=== PATIENT | female | born 1985 | race Caucasian/White ===

== ENCOUNTER → 2019-08-26 | Outpatient (CLI) | payer OTHER ==
--- NOTE | 2019-08-26 13:17 | REP ---
MRI cervical spine: 08/26/2019. Indication: Neck pain. Comparison: None. Technique: Multiplanar short and long TR sequences of the cervical spine were obtained without IV Gadolinium. Findings: There is straightening of the cervical lordosis. No abnormal marrow signal is detected. The visualized cord is normal. Incidental note is made of a 1 cm Thornwaldt cyst. C2/C3 and C3/C4: There is no disc herniation or significant spinal canal / neural foraminal narrowing. C4/C5: Mild diffuse disc bulge is present with a tiny superimposed left paracentral disc protrusion. There is no significant spinal canal or neural foraminal narrowing. C5/C6: Diffuse disc bulge is present with mild spinal canal narrowing. Mild to moderate bilateral neural foraminal narrowing is present. C6/C7 and C7/T1: Unremarkable. Impression: Degenerative sequelae most pronounced in C5/C6 without significant spinal canal or neural foraminal narrowing. Electronically Signed by Benjamin Casey DO 08/26/2019 01:09 P
--- NOTE | 2019-08-26 13:24 | REP ---
MRI lumbar spine: 08/26/2019. Indication: Lumbar radiculopathy. Low back pain. Comparison: None. Technique: Multiplanar short and long TR sequences of the lumbar spine were obtained without IV Gadolinium. Findings: Vertebral body alignment is anatomic. No worrisome marrow signal is present. The visualized cord is normal. No significant paraspinal soft tissue abnormalities are detected. Mild disc bulging is noted anteriorly at L1/L2 and L2/L3. No focal disc herniations or areas of significant spinal canal / neural foraminal narrowing are present throughout the lumbar spine. Impression: No areas of significant spinal canal / neural foraminal narrowing. No focal disc herniations. Electronically Signed by Benjamin Casey DO 08/26/2019 01:15 P
== END ==
LOC: M PLARAD 10:29
PROVIDERS: ATTEND Physician Assistant
DX: M50.221 Other cervical disc displacement at C4-C5 level (principal); M54.5 Low back pain; M50.222 Other cervical disc displacement at C5-C6 level

== ENCOUNTER 2020-09-03 13:39 | Emergency (ER) | payer OTHER ==
[~2020-09-03] VITALS: Ht 172.7 cm; Wt 119.0 kg
[2020-09-03] MEDS ORDERED: CHOL4POW3 (13:54)
[2020-09-03] MEDS ORDERED: FIRV25SO (13:54)
[2020-09-03] MEDS ORDERED: DULO1CAP4 (13:54)
[2020-09-03] MEDS ORDERED: NS 1,000 ML IV ONE ×2 (14:30→16:15)
[2020-09-03 14:45] LABS: BASO % 0.3 % (0.0-1.0); EOS % 0.4 % (0.0-3.0); HEMATOCRIT 42.6 % (36.0-47.0); HEMOGLOBIN 13.7 g/dl (12.0-15.5); LYMPH # 2.7 10^3/uL (1.5-5.0); MEAN CORPUSCULAR HEMOGLOBIN 29.5 pg (27.0-33.0); MEAN CORPUSCULAR HGB CONC 32.2 g/dl (32.0-36.5); MEAN CORPUSCULAR VOLUME 91.6 fl (80.0-96.0); MONO # 0.4 10^3/uL (0.0-0.8); MONO % 4.8 % (0.0-5.0); NEUTROPHILS % 65.2 % (36.0-66.0); PLATELET COUNT, AUTOMATED 240 10^3/uL (150-450); RED BLOOD COUNT 4.65 10^6/uL (4.00-5.40); WHITE BLOOD COUNT 9.3 10^3/uL (4.0-10.0)
[2020-09-03 14:55] LABS: INR 0.97; PROTHROMBIN TIME 13.1 SECONDS (12.5-14.3)
[2020-09-03] MEDS ORDERED: ISOVUE-370 76% 100ML VIAL As Ordered ONE (14:55)
[2020-09-03 14:56] LABS: PARTIAL THROMBOPLASTIN TIME 27.6 SECONDS (24.2-38.5)
--- NOTE | 2020-09-03 15:38 | REP ---
INDICATION: generalized abd pain. COMPARISON: None. TECHNIQUE: Post of 100 mL Isovue 370 with scanning through the abdomen and pelvis in both coronal and sagittal reconstructions provided. FINDINGS: CT abdomen: Lung bases show minimal dependent atelectasis without nodule infiltrate or effusion. Heart is not enlarged. No pericardial thickening or effusion. No hiatal hernia. Fatty infiltration of the liver is noted with mild hepatomegaly and a vertical diameter of 19 cm of the right lobe of liver in midclavicular line. No focal hepatic mass or biliary dilatation. Gallbladder surgically absent. Spleen is not enlarged and shows no focal lesion no perisplenic ascites adrenal glands are normal pancreas shows no mass ductal dilatation adjacent inflammatory changes or adenopathy. Stomach with small amount of retained fluid no mass or distention small bowel loops in the abdomen proper unremarkable abdominal portion of the colon was intact. The lung windows show no evidence of perforation or free air in the abdomen or pelvis. No abdominal ascites. Kidneys show symmetric enhancement without mass, stone, hydronephrosis or perinephric edema the aorta is unremarkable no periaortic, mesenteric or other retroperitoneal lymph adenopathy. Is a small umbilical hernia with only omental fat and no bowel herniation. Of a a hernia gaps about 7 mm. Bone windows show lumbar and lower thoracic vertebral levels with no compression deformity or destructive lesion only minimal degenerative spurring and a few of the lower thoracic vertebral levels. CT pelvis sacrum, SI joints pelvis hips pubic bone were all unremarkable no ureteral dilatation or stone bladder is without mass or wall thickening. Uterus is midline anteverted not enlarged. Symmetric of size of the ovaries no adnexal mass or pelvic free fluid the distal left colon sigmoid and rectum are unremarkable cecum was intact and no adjacent inflammatory changes seen. No ventral or inguinal hernia. IMPRESSION: 1. Colon and small bowel loops unremarkable without inflammatory changes, adenopathy ascites or pelvic free air. No colitis or diverticulitis 2. No inflammatory changes about the cecum. 3. Fatty infiltration of the liver with some apical megaly and vertical diameter the right hepatic lobe of the 19 cm midclavicular line. 4. Prior cholecystectomy. No biliary dilatation. Pancreas, spleen, kidneys and stomach are all unremarkable. <Electronically signed by Srinivasan Partida > 09/03/20 [id number]
[2020-09-03 15:47] LABS: ALBUMIN 4.4 GM/DL (3.2-5.2); BILIRUBIN,DIRECT 0.2 MG/DL (0.0-0.2); BILIRUBIN,TOTAL 0.8 MG/DL (0.2-1.0); TOTAL PROTEIN 7.8 GM/DL (6.4-8.2)
[2020-09-03] MEDS ORDERED: IBUPROFEN 600MG TAB PO ONE (16:15)
[2020-09-03 19:43] VITALS: BP 133/84
== END 2020-09-03 19:45 | disposition home or self-care (01) ==
LOC: M ED 13:39
DX: A04.71 Enterocolitis due to Clostridium difficile, recurrent (principal); E86.0 Dehydration; M79.7 Fibromyalgia; K58.9 Irritable bowel syndrome, unspecified; F12.10 Cannabis abuse, uncomplicated; K76.0 Fatty (change of) liver, not elsewhere classified; Z88.8 Allergy status to other drugs, medicaments and biological substances
CPT/HCPCS: 74177; 80047; 80076; 83605; 83690; 84702; 85025; 85610; 85730; 86850; 86900; 86901; 87040; 93041; 96360; 99285; Q9967

== ENCOUNTER → 2020-09-05 | Outpatient (REF) | payer OTHER ==
[~2020-09-05] MED LIST: CHOL4POW3; DULO1CAP4; FIRV25SO
== END ==
LOC: M LAB REF 18:37
PROVIDERS: ATTEND Family Medicine
DX: R19.7 Diarrhea, unspecified (principal)

== ENCOUNTER 2020-09-17 16:07 | Outpatient (CLI) | payer OTHER ==
[~2020-09-17] VITALS: Ht 172.7 cm; Wt 113.6 kg
[~2020-09-17 16:07] MED LIST changes: +BEZLOTOXUMAB in NS 100 ML OVER 1 HR IV ONE
[2020-09-17] MEDS ORDERED: DIFI200T PO (16:31)
[2020-09-17 16:39] VITALS: BP 122/71
[2020-09-17 17:45] VITALS: BP 98/56
[2020-09-17 18:05] VITALS: BP 121/74
== END 2020-09-17 18:05 | disposition home or self-care (01) ==
LOC: M INFU 16:07
PROVIDERS: ATTEND Internal Medicine Gastroenterology
DX: A04.71 Enterocolitis due to Clostridium difficile, recurrent (principal); Z88.8 Allergy status to other drugs, medicaments and biological substances
CPT/HCPCS: 96365; J0565

== ENCOUNTER → 2020-12-14 | Outpatient (CLI) | payer OTHER ==
[~2020-12-14] MED LIST changes: -BEZLOTOXUMAB in NS 100 ML OVER 1 HR IV ONE; +DIFI200T PO; +E-Z-PAQUE 96% w/w SUSP 176GM BTL As Ordered ONE
--- NOTE | 2020-12-14 17:33 | REP ---
INDICATION: GI BLEED EVALUATION. COMPARISON: None. TECHNIQUE: The procedure was performed under the direct supervision of Dr. Mariano. The images were reviewed with Dr. Mariano. Liquid barium was administered and the barium column was followed through the small bowel to the level of the terminal ileum. 1.3 minutes of fluoro time was utilized for this procedure. 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 The intestinal gas pattern is nonspecific. Small bowel transit time is approximately 30 minutes. During fluoroscopy gentle palpation shows all loops are freely movable and pliable. There are no fixed or angulated loops. The small bowel mucosal pattern is normal in course and caliber. There is no transition to suggest a partial small bowel obstruction. Spot filming of the terminal ileum shows it to be unremarkable. IMPRESSION: Small bowel follow-through examination within normal limits. <Electronically signed by Salas Burleson > 12/14/20 [id number] <Electronically signed by Aidan Mariano > 12/14/20 [id number]
== END ==
LOC: M RAD 07:55
PROVIDERS: ATTEND Internal Medicine Gastroenterology
DX: K92.2 Gastrointestinal hemorrhage, unspecified (principal)

== ENCOUNTER → 2021-03-27 | Outpatient (CLI) | payer OTHER ==
[~2021-03-27] MED LIST changes: -E-Z-PAQUE 96% w/w SUSP 176GM BTL As Ordered ONE
--- NOTE | 2021-03-27 09:09 | REP ---
INDICATION: GB DISEASE. Gallbladder surgically absent. COMPARISON: Comparison CT study September 03, 2020.. TECHNIQUE/RADIOTRACER AND DOSE: 6.6 mCi of Technetium-99m mebrofenin was injected and sequential anterior images are acquired. FINDINGS: The initial hepatocellular parenchymal uptake phase is normal and homogeneous. Intra- and extra-hepatic bile ducts are labeled by the 10-minute image. The gallbladder is surgically absent.. There is normal washout from the liver parenchyma into the gallbladder and small intestine on subsequent images. IMPRESSION: Normal hepatobiliary scan. Post cholecystectomy. <Electronically signed by Aidan Mariano > 03/27/21 [id number]
== END ==
LOC: M RAD 07:46
PROVIDERS: ATTEND Internal Medicine Gastroenterology
DX: R10.11 Right upper quadrant pain (principal); K75.81 Nonalcoholic steatohepatitis (NASH); K82.8 Other specified diseases of gallbladder; K60.2 Anal fissure, unspecified; R93.5 Abnormal findings on diagnostic imaging of other abdominal regions, including retroperitoneum; Z90.49 Acquired absence of other specified parts of digestive tract
CPT/HCPCS: 78226; A9537

== ENCOUNTER → 2023-01-22 | Outpatient (REF) | payer OTHER ==
[~2023-01-22] MED LIST changes: +CHOL378P3; -CHOL4POW3
== END ==
LOC: M SFHCDERM 18:15
PROVIDERS: ATTEND Nurse Practitioner Family
DX: I78.1 Nevus, non-neoplastic (principal)